=== PATIENT | female | born 1995 | race African-American/Black ===

== ENCOUNTER 2017-08-15 10:54 | Emergency (ER) | payer OTHER ==
[~2017-08-15] VITALS: Ht 154.9 cm; Wt 63.5 kg
[2017-08-15] MEDS ORDERED: IMODIUM PO STA (11:32)
[2017-08-15] MEDS ORDERED: NS IV STA (11:32)
[2017-08-15] MEDS ORDERED: ZOFRAN IV STA (11:32)
--- NOTE | 2017-08-15 11:38 | ER.PDOC ---
General Chief Complaint: General Complaint Stated Complaint: FLU SYMPTOMS Time seen by MD: 11:36 Source: patient Exam Limitations: no limitations History of Present Illness Initial Comments Vomiting and diarrhea today, Cough, congestion and sore throat for 2 days. No abdominal pain. Severity/Quality: moderate Associated Symptoms (vomiting): mild vomiting Associated Symptoms (diarrhea): watery Allergies: Uncoded Allergies: PECANS (Allergy, Unknown, UN, 08/15/17) Vital Signs First Vital Signs Date Time Temp Pulse Resp B/P (MAP) Pulse Ox O2 Delivery O2 Flow Rate FiO2 08/15/17 11:14 99.1 115 17 100 08/15/17 11:16 137/81 (99) Last Vital Signs Date Time Temp Pulse Resp B/P (MAP) Pulse Ox O2 Delivery O2 Flow Rate FiO2 08/15/17 11:16 99.1 103 17 137/81 (99) 100 Past Medical History Medical History: no pertinent history Surgical History: no surgical history LMP (females 10-50): last week Social History Smoking: non-smoker Alcohol Use: none Drug Use: none Constitutional: no symptoms reported EENTM: see HPI Respiratory: see HPI Cardiovascular: no symptoms reported Gastrointestinal: see HPI Genitourinary: no symptoms reported All Other Systems: Reviewed and Negative Physical Exam General Appearance: No Apparent Distress, WD/WN HEENT: PERRL/EOMI, Normal ENT Inspection, TMs Normal, Pharynx Normal Respiratory: chest non-tender, lungs clear, normal breath sounds, no respiratory distress, no accessory muscle use Cardiovascular: Normal Peripheral Pulses, Regular Rate, Rhythm, No Edema, No Gallop, No JVD, No Murmur, Tachycardia Gastrointestinal: Normal Bowel Sounds, Non Tender, Soft Back: Normal Inspection, No CVA Tenderness, No Vertebral Tenderness Extremities: Normal Range of Motion, Non-Tender, Normal Inspection, No Pedal Edema, No Calf Tenderness, Normal Capillary Refill, Pelvis Stable Neurologic/Psychiatric: rn progressive care II-XII NML as Tested, No Motor/Sensory Deficits, Alert, Normal Mood/Affect, Oriented x 3 Results/Orders Results/Orders Laboratory Tests Test 08/15/17 11:32 08/15/17 11:50 Urine Collection Type UNKNOWN Urine Color YELLOW (YELLOW) Urine Appearance CLEAR (CLEAR) Urine Bilirubin NEGATIVE MG/DL (NEGATIVE) Urine Ketones NEGATIVE (NEGATIVE) Urine Specific [place] 1.010 (1.005-1.035) Urine pH 6 (5.0-6.0) Urine Protein NEGATIVE (NEGATIVE) Urine Urobilinogen NORMAL (NEGATIVE) Urine Nitrate NEGATIVE (NEGATIVE) Urine Leukocyte Esterase NEGATIVE (NEGATIVE) Urine Blood NEGATIVE (NEGATIVE) Urine Glucose 50 (NEGATIVE) Urine HCG, Qualitative NEGATIVE (NEGATIVE) Group A Streptococcus Screen NEGATIVE (NEGATIVE) White Blood Count 9.1 10^3/uL (4.5-11.0) Red Blood Count 3.90 10^6/uL (4.00-5.20) Hemoglobin 11.7 g/dL (12.0-15.0) Hematocrit 35.5 % (36.0-46.0) Mean Corpuscular Volume 91.0 fL (78-100) Mean Corpuscular Hemoglobin 30.0 pg (26-34) Mean Corpuscular Hemoglobin Concent 33.0 g/dL (33-37) Red Cell Distribution Width 12.0 % (11.5-14.5) Platelet Count 310 10^3/uL (150-400) Mean Platelet Volume 11.1 fL (7.8-11.0) Neutrophils (%) (Auto) 75.9 % (41.0-85.0) Lymphocytes (%) (Auto) 11.6 % (24.0-44.0) Monocytes (%) (Auto) 10.7 % (5.0-12.0) Neutrophils # (Auto) 6.9 10^3/uL (1.8-7.7) Lymphocytes # (Auto) 1.1 10^3/uL (1.0-4.8) Monocytes # (Auto) 1.0 10^3/uL (0.3-0.8) Absolute Immature Granulocyte (auto 0.02 10^3 u/L (0-2) Eosinophils % 1.5 % (0.0-5.0) Basophils % 0.1 % (0.0-0.2) Basophils # 0.0 10^3/uL (0.0-0.1) Eosinophil Count 0.1 10^3/uL (0.0-0.2) Sodium Level 142 mmol/L (132-145) Potassium Level 3.3 mmol/L (3.6-5.2) Chloride Level 107.0 mmol/L (96-109) Carbon Dioxide Level 23.0 mmol/L (20.0-32) Anion Gap 15.3 Blood Urea Nitrogen 4 mg/dL (7-18) Creatinine 0.95 mg/dL (0.59-1.40) Estimated GFR () 89.9 (>/=60) BUN/Creatinine Ratio 4.0 Glucose Level 88 mg/dL (70-110) Calcium Level 8.8 mg/dL (8.4-10.5) Total Bilirubin 0.3 mg/dL (0.2-1.0) Aspartate Amino Transf (AST/SGOT) 20 U/L (0-35) Alanine Aminotransferase (ALT/SGPT) 21 U/L (12-78) Alkaline Phosphatase 100 U/L (50-136) Total Protein 7.9 g/dL (6.4-8.2) Albumin 3.9 g/dL (3.4-5.0) Globulin 4.0 Percent Immature Gran (Cell Imm) 0.20 % (0.00-0.50) Administered Medications Medications (Trade) Dose Ordered Sig/Olive Route PRN Reason Start Time Stop Time Status Last Admin Dose Admin Sodium Chloride 1,905 ml @ 1,200 mls/hr OT STAT IV 08/15/17 11:32 08/15/17 13:07 08/15/17 12:00 Ondansetron HCl (Zofran) 4 mg STAT STAT IV 08/15/17 11:32 08/15/17 11:37 DC 08/15/17 12:00 Loperamide HCl (Imodium) 4 mg STAT STAT PO 08/15/17 11:32 08/15/17 11:37 DC 08/15/17 12:28 Departure Time of Disposition: 12:32 Disposition: 01 HOME, SELF-CARE Impression: Primary Impression: Gastroenteritis Additional Impression: URI, acute Condition: Stable Referrals: PCP,UNKNOWN (PCP) PRIMARY CARE PROVIDER Additional Instructions: Imodium Chloraseptic spray OTC as needed for throat pain Mucinex DM as directed Push fluids F/U with your PCP in 2-3 days TIFFANIE ZAPIEN MD Aug 15, 2017 11:38
[2017-08-15 11:40] LABS: BILIRUBIN,URINE NEGATIVE (NEGATIVE); UROBILINOGEN,URINE NORMAL (NEGATIVE)
[2017-08-15 11:41] LABS: APPEARANCE,URINE CLEAR (CLEAR); UA COLOR YELLOW (YELLOW)
[2017-08-15] MEDS ORDERED: NS 1000ML 1,000 ML ONE (11:44)
[2017-08-15] MEDS ORDERED: ZOFRAN ONE (11:45)
--- NOTE | 2017-08-15 11:45 | NUR ---
STATUS RN TO BEDSIDE FOR IV START. PT BECOMES ANXIOUS REGARDING IV. PT STATES WOULD LIKE TO USE RESTROOM BEFORE IV. PT WALKED TO RESTROOM BY RN, PT STATES IS FEELING DIZZY AND LOWERS SELF TO FLOOR, ASSISTED BY THIS RN. THIS RN SAT WITH PT UNTIL PT STATES IS FEELING BETTER AND IS READY TO STAND. PT STATES "I THINK I JUST GOT SO NERVOUS ABOUT THE IV BECAUSE I'VE HEARD THAT THEY HURT". PT USED RESTROOM AND TAKEN BACK TO ROOM VIA WHEELCHAIR.
[2017-08-15 11:55] LABS: HCG URINE PREGNANCY NEGATIVE (NEGATIVE)
[2017-08-15 11:57] LABS: BASOPHIL % 0.1 % (0.0-0.2); EOSINOPHIL # 0.1 10^3/uL (0.0-0.2); EOSINOPHIL % 1.5 % (0.0-5.0); HEMOGLOBIN 11.7 g/dL (12.0-15.0); LYMPHOCYTES # 1.1 10^3/uL (1.0-4.8); LYMPHOCYTES % 11.6 % (24.0-44.0); MEAN PLATELET VOLUME 11.1 fL (7.8-11.0); MONOCYTES % 10.7 % (5.0-12.0); NEUTROPHIL # 6.9 10^3/uL (1.8-7.7); NEUTROPHILS % 75.9 % (41.0-85.0); WHITE BLOOD CELL 9.1 10^3/uL (4.5-11.0)
[2017-08-15 12:04] LABS: STREP SCREEN NEGATIVE (NEGATIVE)
[2017-08-15 12:15] LABS: CALCIUM 8.8 mg/dL (8.4-10.5)
[2017-08-15] MEDS ORDERED: IMODIUM ONE (12:25)
[2017-08-15 13:06] VITALS: BP 122/78
== END 2017-08-15 12:54 | disposition home or self-care (01) ==
LOC: ER 10:54 → EDBD 10:54 → ER 12:54
DX: K52.9 Noninfective gastroenteritis and colitis, unspecified (principal); J06.9 Acute upper respiratory infection, unspecified
CPT/HCPCS: 36415; 80053; 81000; 81025; 85025; 87070; 87880; 96361; 96374; 99284; J2405; J7030